=== PATIENT | female | born 1970 | race Caucasian/White ===

== ENCOUNTER 2023-04-10 09:47 | Day surgery (SDC) | payer OTHER ==
[2023-04-10] MEDS ORDERED: CEFAZOLIN SODIUM 1,000 MG VIAL ONE (11:43)
[2023-04-10] MEDS ORDERED: CEFAZOLIN SODIUM 1,000 MG VIAL IV ONE (13:00)
[2023-04-10] MEDS ORDERED: MACROBID 100 M100 MG PO (13:06)
[2023-04-10] MEDS ORDERED: TRAM1TAB98 PO (13:07)
== END 2023-04-10 15:30 | disposition home or self-care (01) ==
LOC: CIR.AMB 09:47 → SURH 14:04 → EDSTATUS 14:33 → CIR.AMB 14:35
PROVIDERS: ATTEND Obstetrics & Gynecology Gynecology
DX: N39.3 Stress incontinence (female) (male) (principal); Z20.822 Contact with and (suspected) exposure to COVID-19
CPT/HCPCS: 57288; C1771